=== PATIENT | male | born 1980 | race Caucasian/White ===

== ENCOUNTER 2018-10-27 07:49 | Emergency (ER) | payer OTHER ==
[2018-10-27 07:56] VITALS: BP 142/89
[2018-10-27] MEDS ORDERED: DEXAMETHASONE 10 MG/ML VIAL PO STA (08:16)
[2018-10-27] MEDS ORDERED: CHERRY SYRUP 10 ML UDC PO ONE (08:16)
--- NOTE | 2018-10-27 08:20 | ED Physician Documentation ---
PD HPI LOWER EXT INJURY - Stated complaint Stated Complaint: LT LEG PX - Chief complaint Chief Complaint: Trauma Ext - History obtained from History obtained from: Patient - History of Present Illness PD HPI LOW EXT INJURY LOCATION: Left, Upper leg Type of injury: Other (excessive use) Where injury occurred: Work Timing - onset: Today Timing - duration: Hours Timing - details: Abrupt onset, Still present Improved by: Rest, Immobilization Worsened by: Moving, Palpating Associated symptoms: No: Weakness, Numbness, Tingling Contributing factors: No: Anticoagulated Similar symptoms before: Has not had sx before Recently seen: Not recently seen - Additional information Additional information: 38-year-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 He is developed some pain in his upper thighs bilaterally and and in his groin from recent training and today he was doing some lunges heard a large snap and has pain specifically in the left groin with any type of ambulation. Review of Systems Constitutional: denies: Fever Eyes: denies: Decreased vision Ears: denies: Ear pain Nose: denies: Congestion Throat: denies: Sore throat Respiratory: denies: Cough GI: denies: Vomiting : denies: Dysuria Skin: denies: Rash Musculoskeletal: reports: Extremity pain, Pain with weight bearing. denies: Neck pain, Back pain, Joint swelling Neurologic: denies: Generalized weakness, Focal weakness, Numbness PD PAST MEDICAL HISTORY - Present Medications Home Medications: Ambulatory Orders Medication Instructions Recorded Confirmed Cyclobenzaprine [Flexeril] 10 mg PO TID PRN #20 tablet 10/27/18 Hydrocodone/Acetaminophen 1 - 2 each PO Q6H PRN #14 tablet 10/27/18 [Hydrocodon-Acetaminophen 5-325] - Allergies Allergies/Adverse Reactions: Allergies Allergy/AdvReac Type Severity Reaction Status Date / Time No Known Drug Allergies Allergy Verified 10/27/18 07:56 PD ED PE NORMAL - Vitals Vital signs reviewed: Yes (tachy and hypertensive ) - General General: Alert and oriented X 3, No acute distress, Well developed/nourished - HEENT HEENT: Atraumatic, PERRL, EOMI - Respiratory Respiratory: No respiratory distress - Derm Derm: Normal color, Warm and dry, No rash - Extremities Extremities: No deformity, No edema, Other (There is tenderness to the anterior thigh and the ingunial fold. There is normal ROM of the hip and distal n/v is intact. ) - Neuro Neuro: Alert and oriented X 3, apns 2-12 intact, No motor deficit, No sensory deficit, Normal speech Eye Opening: Spontaneous Motor: Obeys Commands Verbal: Oriented GCS Score: 15 - Psych Psych: Normal mood, Normal affect Results - Vitals Vitals: Vital Signs - 24 hr 10/27/18 07:53 Temperature 36.0 C L Heart Rate 113 H Respiratory 20 Rate Blood Pressure 142/89 H O2 Saturation 97 Oxygen O2 Source Room air PD MEDICAL DECISION MAKING - ED course Complexity details: re-evaluated patient, considered differential, d/w patient ED course: 38-year-old male was pulled a muscle in his groin has significant pain and difficulty ambulating. He is administered dexamethasone and Toradol here in the emergency department and we will place him on some pain medication a muscle relaxant with reduced activity for about 10 days. Departure - Departure Disposition: 01 Home, Self Care Clinical Impression: Strain of groin Qualifiers: Encounter type: initial encounter Laterality: left Qualified Code(s): S76.212A - Strain of adductor muscle, fascia and tendon of left thigh, initial encounter Condition: Stable Instructions: ED Strain Groin Follow-Up: [facility] [Provider Group] Prescriptions: Cyclobenzaprine [Flexeril] 10 mg PO TID PRN #20 tablet PRN Reason: Spasms Hydrocodone/Acetaminophen [Hydrocodon-Acetaminophen 5-325] 1 - 2 each PO Q6H PRN #14 tablet PRN Reason: pain Forms: Activity restrictions
[2018-10-27] MEDS ORDERED: KETOROLAC 60 MG/2 ML VIAL IM STA (08:21)
== END 2018-10-27 08:41 | disposition home or self-care (01) ==
LOC: ED 07:49
DX: S76.212A Strain of adductor muscle, fascia and tendon of left thigh, initial encounter (principal); X50.9XXA Other and unspecified overexertion or strenuous movements or postures, initial encounter; Y93.A9 Activity, other involving cardiorespiratory exercise; Y99.0 Civilian activity done for income or pay
CPT/HCPCS: 96372; 99283; 99284; A9270

== ENCOUNTER 2019-10-05 20:05 | Outpatient (CLI) | payer OTHER | END 2019-10-05 20:06 | disposition critical access hospital (66) | LOC: EMS 20:05 | PROVIDERS: ATTEND Surgery | DX: S49.91XA Unspecified injury of right shoulder and upper arm, initial encounter (principal); R07.81 Pleurodynia; V19.88XA Pedal cyclist (driver) (passenger) injured in other specified transport accidents, initial encounter; Y93.55 Activity, bike riding | CPT/HCPCS: A0425; A0427 ==

== ENCOUNTER 2019-10-29 10:31 | Outpatient (CLI) | payer OTHER | END 2019-10-29 10:32 | disposition home or self-care (01) | LOC: DI 10:31 | DX: Z53.9 Procedure and treatment not carried out, unspecified reason (principal) ==

== ENCOUNTER 2019-11-19 09:12 | Outpatient (CLI) | payer OTHER ==
--- NOTE | 2019-11-19 10:53 | MRI Report ---
PROCEDURE: Shoulder RT W/O INDICATIONS: SUBLUXATION OF RT AC JOINT TECHNIQUE: Noncontrast oblique coronal T2 fast spin echo with fat saturation, oblique sagittal T1 spin echo and T2 fast spin echo with fat saturation, axial T1 spin echo and T2 fast spin echo with fat saturation t hrough the shoulder. COMPARISON: Right shoulder radiographs dated 10/05/2019 FINDINGS: Image quality: Excellent. Rotator cuff: There is moderate supraspinatus and infraspinatus tendinosis. The teres minor tendon i s intact. There is mild subscapularis tendinosis. There is no significant rotator cuff muscle atrophy . Bones and bursae: There is osseous and soft tissue edema surrounding the acromioclavicular joint wit h disruption of the acromioclavicular ligaments. The coracoclavicular ligaments appear to be torn at the midportion. Findings are compatible with the previously seen type III acromioclavicular separatio n injury. There is mild widening of the acromioclavicular joint space on this exam without significan t superior offset of the distal clavicle. The remaining osseous structures are intact. Small traction cystic changes are seen at the posterosuperior humeral head near the rotator cuff tendon insertions. Capsule and soft tissues: In the absence of intra-articular contrast, the labrum and glenohumeral li gaments appear intact. The long head of the biceps tendon demonstrates normal location and morpholog y. There is mild partial effacement of the normal fat in the rotator interval. The inferior glenohum eral ligament is not significantly thickened. IMPRESSION: 1. Widening of the acromioclavicular joint space with disruption of the acromioclavicular ligaments and coracoclavicular ligament is compatible with a prior type III acromioclavicular separation injury . The distal clavicle and acromion are normally aligned on the current study. There is surrounding os seous and soft tissue edema. 2. Moderate supraspinatus and infraspinatus tendinosis. Mild subscapularis tendinosis. Reviewed by: Marques Gu MD on 11/19/2019 10:52 AM PDT Approved by: Marques Gu MD on 11/19/2019 10:52 AM PDT Station ID: [id number]
== END 2019-11-19 09:13 | disposition home or self-care (01) ==
LOC: DI 09:12
DX: R93.6 Abnormal findings on diagnostic imaging of limbs (principal); M75.81 Other shoulder lesions, right shoulder

== ENCOUNTER 2020-05-13 06:27 | Day surgery (SDC) | payer OTHER ==
[~2020-05-13 06:27] MED LIST: LACTATED RINGERS 1,000 ML IV ONE; SODIUM CHLORIDE 0.9% 1,000 ML IV ONE; cefTRIAXone 2 GM VIAL ONE
[2020-05-13] MEDS ORDERED: LIDOCAINE-MPF 2% 5 ML VIAL ONE (07:00)
[2020-05-13] MEDS ORDERED: PROPOFOL 200 MG/20 ML VIAL IVP ONE (07:00)
[2020-05-13] MEDS ORDERED: BUPIVACAINE 0.5% PF 30 ML VIAL ONE (07:03)
[2020-05-13] MEDS ORDERED: MIDAZOLAM 2 MG/2 ML VIAL ONE (07:08)
[2020-05-13] MEDS ORDERED: BUPIVACAINE 0.25% PF 30 ML VIAL ONE (07:26)
[2020-05-13] MEDS ORDERED: HYDROmorphone 0.5 MG/0.5 ML SYRINGE IVP PRN (07:40)
[2020-05-13] MEDS ORDERED: METOCLOPRAMIDE 10 MG/2 ML VIAL IVP PRN (07:40)
[2020-05-13] MEDS ORDERED: ATROPINE ABBOJECT 1 MG/10 ML SYRINGE IVP PRN (07:40)
[2020-05-13] MEDS ORDERED: ePHEDrine 50 MG/ML VIAL IVP PRN (07:40)
[2020-05-13] MEDS ORDERED: NALOXONE 0.4 MG/ML VIAL IVP PRN (07:40)
[2020-05-13] MEDS ORDERED: ONDANSETRON 4 MG/2 ML VIAL IVP PRN ×2 (07:40→12:17)
[2020-05-13] MEDS ORDERED: MORPHINE 2 MG/ML CARPUJECT IVP PRN (07:40)
--- NOTE | 2020-05-13 07:40 | ANESTHESIA ---
Pre-Anesthesia VS, & Labs - Diagnosis RIght AC Separation - Procedure RIght ac repair Vital Signs: Temp Pulse Resp BP Pulse Ox 37.3 C 105 H 16 148/95 H 95 05/13/20 06:43 05/13/20 06:43 05/13/20 06:43 05/13/20 06:43 05/13/20 06:43 Height: 6 ft Weight (kg): 105.69 kg Body Mass Index: 31.6 BMI Classification: Obese - NPO >8 hours Home Medications and Allergies Home Medications: Ambulatory Orders Loratadine [Claritin] 10 mg PO DAILY 05/10/20 Omeprazole 20 mg PO DAILY PRN 10/06/19 Loratadine [Claritin] 10 mg PO DAILY 05/10/20 Allergies/Adverse Reactions: Allergies Allergy/AdvReac Type Severity Reaction Status Date / Time No Known Drug Allergies Allergy Verified 05/10/20 14:21 Anes History & Medical History - Anesthetic History Anesthesia Complications: reports: No previous complications Family history of Anesthesia Complications: Denies Family history of Malignant Hyperthermia: Denies - Medical History Cardiovascular: reports: None Pulmonary: reports: Asthma Gastrointestinal: reports: GERD Urinary: reports: None Neuro: reports: None Musculoskeletal: reports: Other Endocrine/Autoimmune: reports: None Blood Disorders: reports: None Skin: reports: None Smoking Status: Current every day smoker (Also uses smokeless tobacco) - Surgical History Eyes Ears Nose Throat (EENT): reports: Tonsil/Adenoidectomy Exam General: Alert, Oriented x3, Cooperative, No acute distress Dental: WNL Mouth Opening: Greater than 4 Fingerbreadths Neck Mobility: Normal Mallampati classification: II Thyromental Distance: 4-6 cm Respiratory: Lungs clear, Normal breath sounds, No respiratory distress, No accessory muscle use Cardiovascular: Regular rate, Normal S1, Normal S2, No murmurs Cognitive Status: Within normal limits Plan Anesthesia Type: General, Interscalene Block Regional Block: Per Surgeon's request for Post Op pain control Consent for Procedure(s) Verified and Reviewed: Yes Code Status: Attempt Resuscitation ASA classification: 2-Mild systemic disease Is this case an emergency?: No
[2020-05-13] MEDS ORDERED: fentaNYL 100 MCG/2 ML VIAL ONE ×3 (07:43→11:58)
[2020-05-13] MEDS ORDERED: LACTATED RINGERS 1,000 ML IV SCH (08:00)
[2020-05-13] MEDS ORDERED: BACITRACIN 50,000 UNIT VIAL ONE ×2 (08:03→13:15)
[2020-05-13] MEDS ORDERED: DEXAMETHASONE 4 MG/ML VIAL ONE (08:11)
[2020-05-13] MEDS ORDERED: HYDROmorphone 1 MG/ML CARPUJECT ONE (09:21)
[2020-05-13] MEDS ORDERED: BACITRACIN 50,000 UNIT VIAL IM ONE (10:13)
[2020-05-13] MEDS ORDERED: BUPIVACAINE 0.25% PF 30 ML VIAL SUBQ ONE (11:04)
[2020-05-13] MEDS ORDERED: LACTATED RINGERS 1,000 ML IV ONE (11:39)
[2020-05-13] MEDS ORDERED: KETOROLAC 30 MG/ML VIAL IVP ONE (11:46)
[2020-05-13] MEDS: fentaNYL 100 MCG/2 ML VIAL IVP PRN ×2 (11:55→12:00)
[2020-05-13] MEDS ORDERED: oxyCODONE 5 MG TABLET PO PRN (12:17)
[2020-05-13] MEDS ORDERED: LABETALOL 20 MG/4 ML SYRINGE IVP ONE ×2 (12:22→12:33)
--- NOTE | 2020-05-13 12:31 | ANESTHESIA POST OP EVALUATION ---
Anesthesia Post Eval - Post Anesthesia Eval Vitals: Last Vital Signs Temp 36.7 C 05/13/20 11:37 Pulse 142 H 05/13/20 12:00 Resp 20 05/13/20 12:00 BP 131/73 H 05/13/20 12:00 Pulse Ox 93 05/13/20 12:00 CV Function Including HR & BP: positive: Stable Pain Control: positive: Satisfactory Nausea & Vomiting: positive: Negative Mental Status: positive: Baseline Respiratory Status: Airway Patent Hydration Status: Satisfactory Anesthesia Complications: positive: None
--- NOTE | 2020-05-13 13:02 | XRAY Report ---
PROCEDURE: Chest 1 View X-Ray INDICATIONS: rapid heart rate TECHNIQUE: One view of the chest was acquired. COMPARISON: 10/06/2019 FINDINGS: Surgical changes and devices: None. Lungs and pleura: There is elevation of right hemidiaphragm suggestive of right-sided pleural effusio n and right middle and lower lobe atelectasis. Left lung is clear. No pneumothorax. Mediastinum: Mediastinal contours appear normal. Heart size is normal. Bones and chest wall: No suspicious bony lesions. Overlying soft tissues appear unremarkable. IMPRESSION: Suggestion of moderate right pleural effusion with right middle and lower lobe atelectasis. No gross pneumothorax. Left lung is clear. Reviewed by: Jaspreet Kahn MD on 05/13/2020 1:00 PM PST Approved by: Jaspreet Kahn MD on 05/13/2020 1:00 PM [facility] Station ID: [id number]
--- NOTE | 2020-05-13 13:03 | OPERATIVE REPORT ---
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 Elbow and wrist range of motion. We will start supine shoulder motion at 2 weeks with physical therapy. INDICATION FOR SURGERY: 39-year-old [id number] male sustained injury to the ipsilateral shoulder and chest during the summer 2019. He had multiple right rib fractures and a right shoulder separation. Based on radiographic parameters, the shoulder separation was felt to be grade 3, and an initial period of nonoperative recovery was recommended. Over the subsequent months, his pain improved as his fractures healed, however his shoulder remains symptomatic at the AC joint. MRI obtained did not demonstrate any significant intra-articular pathology. His primary complaints were pain instability and clicking at the AC joint, that was limiting his ability to perform activities that he enjoyed. Risks benefits and alternatives to surgical reconstruction of the joint were discussed to include continued nonoperative management. After that after our discussion the patient elected to proceed with open coracoclavicular ligament reconstruction with allograft. Risks of the surgery were discussed including pain, bleeding, infection (including the risk of bacterial and viral infection from the allograft), damage to nearby structures, implant failure, implant complications, loss of reduction, stiffness, need for further surgeries, DVT, PE, stroke, heart attack and even . Questions answered and informed consent was signed. PROCEDURE IN DETAIL: The patient was met in the preoperative holding on the day of the procedure. Operative AC joint was signed. Consent was verified. He desired to proceed. The patient met with anesthesia, and a regional block was placed. The patient brought to the operating room and surrendered to anesthesia. Once general anesthesia was obtained he was placed in a modified beach chair position with bony prominences well-padded. They were then prepped and draped in the standard sterile fashion. Surgical landmarks including the contour of the clavicle, the acromion, the coracoid process, and the expected locations of the conoid and trapezoid ligaments were marked out on the skin using surgical marker. The planned incision was marked out overlying the coracoid process proceeding superiorly to the posterior edge of the clavicle. A surgical timeout was performed, to confirm the patient procedure, identity, procedure, laterality, allergies, images, and antibiotics. All were in agreement we proceeded. An incision in line with a marked path was made sharply through the skin and subcutaneous tissues with a 10 blade. Hemostasis was obtained using electrocautery, and to assist with dissection through the fat to the level of the fascia. A combination of Metzenbaum scissors and Bovie electrocautery was used to develop full-thickness skin flaps newly and laterally to assist with exposure. Once the superficial flaps had been elevated, the contour of the underlying clavicle was palpated, and the planned plane of incision overlying the midline of the clavicle was visualized. The fascial/periosteal layer was incised to bone using Bovie electrocautery, and then carefully elevated subperiosteally anteriorly and posteriorly using Bovie electrocautery and a pelaze elevator, creating full-thickness periosteal/fascial flaps of both the deltoid and the trapezius. These were tagged for identification later. We continued our dissection circumferentially around the clavicle, skeletonizing the distal 4-1/2 cm of the clavicle. While this was occurring, the allograft was thawed prepped on the back table. The ends were whipstitched using 2-0 Fiberloop and the graft was sized. It was found to pass snugly through a 5.5 mm tunnel, but would not pass through a 5 mm tunnel. It was placed under tension to eliminate creep. After the graft was prepped and once the clavicle had been adequately exposed, we turned our attention to identifying the coracoid process inferiorly. Palpation was used to confirm the location of the coracoid process through the previously elevated clavicular periosteal sheath. The sheath was then pierced using Metzenbaum scissors and an interval was developed directly onto the superior surface of the coracoid process. This interval was widened medially and laterally, exposing the medial and lateral borders of the coracoid process. Hemostats and right angle clamps were used to gently dissect the soft tissue from the medial and lateral sides of the coracoid. Small Hohmann retractors were placed on either side of the coracoid and the planned path for the semicircular passer was visualized. An Arthrex curved suture passer was passed from medial to lateral, and a nitinol wire was passed. A looped passing suture was placed into the nitinol and then the suture passer was attempted to be retracted back around the coracoid process. The nitinol loop broke in the process, so new nitinol loop was obtained and the procedure was repeated, with successful passage of the loop passing suture around the coracoid. With a passing suture in place, we now turned our attention to locating the tunnels. I measured 45 mm from the lateral border of the clavicle and marked the location on the posterior half of the clavicle, for the planned tunnel for the conoid ligament reconstruction. I then measured 20 mm lateral to this location (approximately 25 mm from the lateral border of the clavicle). A Gomez was placed on the undersurface of the clavicle, and then the guide pins were passed from superior to inferior at the planned tenodesis sites. The 5.5 mm reamer was placed over the posterior most guidewire to ensure that there would not be a cortical blowout. We then reamed on power over the guidewires, and removed the reamers by hand once through both cortices. The holes were tapped using a 5.5 mm swivel lock tap. The wound was then copiously irrigated the nitinol was then used to feed the passing suture up through the conoid hole, and the graft and a fiber tape suture were passed from superior to inferior through the conoid hole, and around the coracoid process from medial to lateral. The nitinol wire was then used in the lateral trapezoid hole, and the fiber tape and graft sutures were passed from inferior to superior through the lateral trapezoid hole. The graft and fiber tape were cycled and centered, ensuring fiber tape was present at each hole. The graft was set asymmetrically, allowing approximately 2 cm of excess out of the lateral hole, with the remainder coming out of the medial hole. The lateral fiber tape and graft were secured using a peek Bio-Tenodesis screw, with good effect. We then pulled on the free limb of the suture tape, and graft while elevating the scapulohumeral complex and depressing the distal clavicle using a pelaez elevator. C arm fluoroscopy was used to confirm appropriate reduction of the AC joint. Satisfied with the reduction, tension was maintained on the graft and tape, and a 5.5 mm Bio-Tenodesis screw was placed, securing the graft. The arm was gently supported in the lap, all retractors were removed, and final C-arm images were taken, demonstrating appropriate reduction of the AC joint and CC interval. The wound was then irrigated. The longer medial limb of the graft and the fiber tape were taken laterally and tacked to the lateral portion of the acromioclavicular joint capsule using #2 FiberWire. The excess tape and graft were then cut. The short segment of graft from the lateral tenodesis site was taken medially running antiparallel to the medial limb of the graft. These were secured side to side to include the fiber tape using several interrupted #2 FiberWire's in [id number] fashion. The wound was then again copiously irrigated, and we began our closure. The tagged deltoid and trapezial periosteal myofascial layer was reapproximated using a combination of modified Anuj-Rogelio and [id number] sutures with 0 Vicryl. Following closure of this layer, the graft and clavicle were completely covered. The wound was then again irrigated and interrupted 0 Vicryl sutures were used to close the deep dermal layer. Subcutaneous tissues were closed using interrupted 2-0 Vicryl, followed by a running 3-0 Monocryl in subcuticular fashion. The incision was sealed with Dermabond, and after the glue had dried Steri-Strips were placed to reinforce the incision. 20 mL of quarter percent Marcaine plain was injected into the periincisional soft tissues for additional postoperative pain control. A sterile dressing consisting of 4 x 4 gauze and Tegaderm was placed, and subsequently reinforced with Medipore tape. The drapes were taken down, the arm was placed in a sling. Anesthesia was reversed, he was extubated, awakened and transferred to the recovery room in stable condition.
--- NOTE | 2020-05-13 13:10 | XRAY Report ---
PROCEDURE: OR C-Arm Procedure INDICATIONS: SHOULDER CORACOCLAVICULAR LIGAMENT RECONSTRUCTION TECHNIQUE: 5 intraoperative fluoroscopic images of right shoulder were obtained. COMPARISON: None. FINDINGS: Intraoperative fluoroscopic images of right shoulder shows surgical instrument placed near distal rig ht clavicular shaft and right acromioclavicular joint. Alignment of shoulder is anatomic. Total fluoroscopy time is 0.1 minute. IMPRESSION: Fluoroscopy guidance was provided intraoperatively for right shoulder surgery. Reviewed by: Jaspreet Kahn MD on 05/13/2020 1:09 PM [facility] [[email or web address]] Approved by: Jaspreet Kahn MD on 05/13/2020 1:09 PM [facility] [[email or web address]] Station ID: [id number]
[2020-05-13] MEDS ORDERED: oxyCODONE 5 MG TABLET ONE (13:32)
[2020-05-13 13:33] VITALS: BP 135/79
== END 2020-05-13 06:28 | disposition home or self-care (01) ==
LOC: SDS 06:27
PROVIDERS: ATTEND Orthopaedic Surgery
DX: S43.101A Unspecified dislocation of right acromioclavicular joint, initial encounter (principal); V18.0XXA Pedal cycle driver injured in noncollision transport accident in nontraffic accident, initial encounter; Y93.55 Activity, bike riding; J45.909 Unspecified asthma, uncomplicated; K21.9 Gastro-esophageal reflux disease without esophagitis; F17.290 Nicotine dependence, other tobacco product, uncomplicated; E66.9 Obesity, unspecified; Z68.31 Body mass index [BMI] 31.0-31.9, adult
CPT/HCPCS: 23552; 71045; 93005; A9270; C1713; C1762; J1170; J7120

== ENCOUNTER 2021-07-10 09:55 | Outpatient (CLI) | payer OTHER ==
--- NOTE | 2021-07-10 18:13 | SLEEP CARE CONSULTATION ---
Information from patient questionnaire entered by Cindy Langford. I have reviewed and concur with the information entered by Cindy Langford. This document represents the service I personally performed and the decisions made by me, Randy Harris MD, [facility]. History of Present Illness Service Date and Time: 07/10/2021 0955 Reason for Visit: New patient (INITAL, ONSET 03/2001, NO PRIORS) Chief Complaint: reports: Unrefreshed sleep, Snoring, Fatigue, Frequent awakenings at night Date of Onset: SEVERAL YEARS PER PT Usual bedtime: 10PM Time it takes to fall asleep: "DEPENDS ON THE DAY" PER PT Snores at night: Yes Observed to quit breathing while asleep: No (NOT SURE PER PT ) Sleeps alone due to snoring: No Number of times waking at night: 2 OR MORE Reasons for waking at night: reports: Other (UNKNOWN REASON PER PT ) Toss, Turn, or Twitch while sleeping: Yes Recalls having dreams: Yes Usually gets out of bed at: 515 TO 530 AM Feels refreshed in the morning: No Morning headache: No Sleepy or fatigued during the day: Yes Ever fallen asleep while driving: No Takes day naps: Yes (SOMETIMES PER PT ) Dreams during day naps: Yes (YES, SOMETIMES PER PT ) Prior sleep studies: No Additional HPI information: I had the pleasure of seeing Mr. Watson today regarding the possibility of him having a sleep disorder. As you know, he is a 41-year-old gentleman who complains of loud snore, unrefreshed sleep, persistent fatigue, and excessive daytime sleepiness. The patient tells me that he normally goes to bed around 10 pm, and it takes him variable amount of time to fall asleep. He has been told that he snores loudly and irregularly at night. He has never been observed to stop breathing in his sleep. His can still sleep in the same bed but requires a fan to drain out his snore. He can recall waking up on the average of 2 times during the night. Most of the time he wakes up because of unknown reason. He has awakened occasionally because of his own snoring, but not chok ing, or having to gasp for air. There is a lot of tossing and turning in his sleep. He has somniloquy (sleep talking) but not somnambulism (sleep walking). Generally, he can recall having dreams. In the morning he usually gets up out of the bed around 5:30 a.m. not feeling refreshed nor rested. He usually does not have a morning headache. During the day he complains of feeling sleepy and fatigued. His score on [place] Sleepiness Scale is 12 out of 24. He never has fallen asleep while driving nor has had any accident due to sleepiness. He usually does not take naps during the day. He denies having impaired concentration during the day. He complains of restless leg syndrome. 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 Patient is and lives in [place]. Have you smoked in the past 12 months: Yes Cigarettes per day (20/pack): 10 Years of smokin Smoking Pack Years: 10.0 Alcohol use: No Caffeine use: Yes Caffeine amount and frequency: 2-3 DAILY Family History Family history of sleep disordered breathing: Yes Family Hx Sleep Apnea: Grandparent: Snoring Allergies and Home Medications Known drug allergies: No Drug allergies reviewed: Yes Home medication list reviewed: Yes Allergy and home medication list: Allergies No Known Drug Allergies Allergy (Verified 05/10/20 14:21) Review of Systems Cardiovascular: denies: high blood pressure, palpitations, chest pain, irregular heart rate or pulse, leg or foot swelling, have to sleep sitting up, other Respiratory: reports: shortness of breath, wheeze Gastrointestinal: reports: heartburn Urinary: denies: incontinence, frequency, urgency, impotence, other Neurological: denies: headaches, seizure, head trauma, disorientation, speech dysfunction, gait or balance problems, fainting or unconsciousness, other Ear/Nose/Throat: reports: nasal congestion Endocrine: reports: sluggishness Musculoskeletal: reports: joint pain, back pain Immunologic: reports: sneezing, other (RUNNY NOSE) Physical Exam Vital signs obtained and entered by: Mary RIDDLE MA Heart Rate: 100 O2 Saturation: 97 Height: 6 ft Weight: 230 lb 1.011 oz Body Mass Index: 31.1 BMI Classification: Obese Impression and Plan IMPRESSION: 1. Obstructive Sleep Apnea-Hypopnea Syndrome, as suggested by history of loud and irregular snoring, unrefreshed sleep, and daytime hypersomnolence. Narrow oropharynx and obesity are common predisposing factors for obstructive sleep apnea-hypopnea syndrome. I recommend proceeding to polysomnography to confirm the diagnosis and to assess severity. If he has significant sleep disordered breathing, a manual CPAP titration study will also be performed to find the optimal treatment pressure. I informed the patient of what the sleep studies involve and after some discussion, he agreed to proceed. Plan: 1. Schedule polysomnography + manual CPAP titration study and return in 1 to 2 weeks after the study to discuss result and initiate therapy. 2. Avoid long distance driving or when feeling sleepy. 3. Avoid alcohol, sedative and muscle relaxant around bedtime. 4. Attempt to lose weight. Follow up with Sleep Care in: 1-2 months Visit Type: In Office Time Spent with Patient (minutes): 15 Provider Statement: I spent 100% of the Face to Face Visit with the patient with greater than 50% spent counseling the patient and coordination of care.
== END 2021-07-10 09:56 | disposition home or self-care (01) ==
LOC: SC 09:55
PROVIDERS: ATTEND Internal Medicine Pulmonary Disease
DX: R06.83 Snoring (principal); G47.8 Other sleep disorders; G47.10 Hypersomnia, unspecified; F17.210 Nicotine dependence, cigarettes, uncomplicated; E66.9 Obesity, unspecified; Z68.31 Body mass index [BMI] 31.0-31.9, adult
CPT/HCPCS: 99202; 99212

== ENCOUNTER 2021-08-10 20:30 | Outpatient (CLI) | payer OTHER | END 2021-08-10 20:31 | disposition home or self-care (01) | LOC: SC 20:30 | PROVIDERS: ATTEND Internal Medicine Pulmonary Disease | DX: G47.33 Obstructive sleep apnea (adult) (pediatric) (principal); G47.61 Periodic limb movement disorder | CPT/HCPCS: 95810 ==

== ENCOUNTER 2021-08-28 14:13 | Outpatient (CLI) | payer OTHER ==
[2021-08-28 14:48] VITALS: BP 151/105
--- NOTE | 2021-08-28 14:48 | SLEEP CARE CONSULTATION ---
Information from patient questionnaire entered by Vipul Ramos MA. I have reviewed and concur with the information entered by Vipul Ramos MA. This document represents the service I personally performed and the decisions made by , Randy Harris MD, [facility]. History of Present Illness Service Date and Time: 08/28/2021 1413 Initial [place] Sleepiness Scale score: 13 (07/10/21) Current [place] Sleepiness Scale score: 10 (08/28/2021) Additional HPI information: Mr. Watson returned for follow up of the sleep study he had on 08/10/21. The polysomnography showed that the patient had normal sleep efficiency. The sleep architecture was normal as well. Respiratory monitoring showed mild obstructive sleep apnea-hypopnea (AHI = 7.3) associated with oxyhemoglobin desaturation and mild hypoxia (denise oxygen saturation of 82%). The respiratory events occurred almost exclusively during REM sleep (supine AHI = 10.9; non-supine = 2.36). Snore was moderate in intensity. There was moderate periodic leg movement of sleep not associated with sleep fragmentation. Cardiac rhythm was normal sinus rhythm without significant arrhythmia. No abnormal behavior (parasomnia) observed during the night. The patient was informed of these findings. I explained to him the pathophysiology behind obstructive sleep apnea. We then spent quite a bit of time discussing different treatment options. For mild obstructive sleep apnea, surgery and oral appliance are alternatives to nasal CPAP therapy but in moderate or severe cases, nasal CPAP is the most effective and reliable treatment. Weight loss in an obese individual is strongly recommended. After some discussion, he opted to go with the nasal CPAP therapy. I explained to him how CPAP machine works and what to expect when using the machine. He is encouraged to use CPAP every night especially in the first 2 to 3 nights in order to get used to it. He should call his CPAP supplier or me to discuss any mechanical problem that may occur. If he snores or feels like he is not getting enough air from the machine, he should notify me and I will increase the pressure. Sleep Study - Results Type of Sleep Study: Polysomnography (F/U POLY, 08/10/2021 [facility], [facility]) Prior sleep studies: No Allergies and Home Medications Drug allergies reviewed: Yes Home medication list reviewed: Yes Allergy and home medication list: Allergies No Known Drug Allergies Allergy (Verified 05/10/20 14:21) Review of Systems Review of systems same as previous: Yes Physical Exam Vital signs obtained and entered by: JOHNSON CONTRERAS Blood Pressure: 151/105 (RESP 24, PULSE 92, LEFT) Heart Rate: 61 O2 Saturation: 97 (CLOTH MASK) Height: 6 ft Weight: 235 lb (CLOTHES) Weight change since last visit: DIET, EXCER, WATCH WHAT HE EATS, Body Mass Index: 31.8 BMI Classification: Obese Neck circumference: 16 (INCHES) Impression and Plan IMPRESSION: 1. Obstructive Sleep Apnea-Hypopnea Syndrome, mild, and positional. Possibly, this is the cause of the patients symptoms of unrefreshed sleep, and excessive daytime sleepiness. As mentioned above, the patient will be started on an autoCPAP set between 5 and 15 cmH2O. Depending on his response and compliance he may be brought back for an overnight CPAP titration study. PLAN: 1. Prescription made for an autoCPAP, heated humidifier, and related supplies. 2. Try to lose weight. 3. Avoid sleeping supine if not using the CPAP. 4. Return for follow up after one month of using the CPAP. Prescriptions: Auto CPAP Follow up with Sleep Care in: 1-2 months Visit Type: In Office Time Spent with Patient (minutes): 20 Provider Statement: I spent 100% of the Face to Face Visit with the patient with greater than 50% spent counseling the patient and coordination of care.
== END 2021-08-28 14:14 | disposition home or self-care (01) ==
LOC: SC 14:13
PROVIDERS: ATTEND Internal Medicine Pulmonary Disease
DX: G47.33 Obstructive sleep apnea (adult) (pediatric) (principal); E66.9 Obesity, unspecified; Z68.31 Body mass index [BMI] 31.0-31.9, adult
CPT/HCPCS: 99212

== ENCOUNTER 2022-04-05 07:11 | Emergency (ER) | payer OTHER ==
[2022-04-05] MEDS ORDERED: SODIUM CHLORIDE INHALATION 3 ML NEB INH STA (08:02)
[2022-04-05] MEDS ORDERED: RACEPINEPHRINE 2.25% NEB INH STA (08:02)
--- NOTE | 2022-04-05 08:08 | ED Physician Documentation ---
PD HPI HEENT - Stated complaint Stated Complaint: SWOLLEN UVULA - Chief complaint Chief Complaint: Heent - History obtained from History obtained from: Patient - Additional information Additional information: The patient comes to the emergency department chief complaint of upper respiratory symptoms for the last several days and uvular swelling that started last night. He states that at first, he just had a scratchy throat, but this progressed to more of a pain sensation. He was seen at the urgent care yesterday, where he was started on a methylprednisolone taper and also given a prescription for antibiotics. He was told to start the antibiotics if the taper did not help him to start feeling better by today. The patient states that he has had a little bit of a cough but no runny nose. He thinks the cough is more just from the irritation in his throat. No fevers or chills. He states that overnight, he woke up several times feeling like he needed to swallow, but never could feel quite like what ever was in his throat was going down. He states that when he looked in the mirror this morning, he realized that his uvula was swollen. He does not feel that any other structures in his mouth or throat are swollen, however. He denies any difficulty breathing. He is able to handle his secretions and swallow other things fine. The patient states that he has not noticed any swelling in his face. This is never happened to him before. No itchy rash. He states he was told at the clinic that his rapid strep was negative. He was not tested for anything else. 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 Review of Systems Constitutional: reports: Reviewed and negative Eyes: reports: Reviewed and negative Ears: reports: Reviewed and negative Nose: reports: Reviewed and negative Throat: reports: Sore throat Cardiac: reports: Reviewed and negative Respiratory: reports: Reviewed and negative GI: reports: Reviewed and negative : reports: Reviewed and negative Skin: reports: Reviewed and negative Musculoskeletal: reports: Reviewed and negative Neurologic: reports: Reviewed and negative Psychiatric: reports: Reviewed and negative Endocrine: reports: Reviewed and negative Immunocompromised: reports: Reviewed and negative PD PAST MEDICAL HISTORY - Past Medical History Cardiovascular: None Respiratory: Asthma Neuro: None Endocrine/Autoimmune: None GI: GERD : None HEENT: None Psych: None Musculoskeletal: Other Derm: None - Past Surgical History Past Surgical History: Yes HEENT: Tonsil/Adenoidectomy - Present Medications Home Medications: Ambulatory Orders Medication Instructions Recorded Confirmed Acetaminophen [Tylenol] 650 mg PO Q4HR PRN tablet 10/06/19 04/05/22 Albuterol Sulfate [Proair Hfa 1 - 2 puffs INH Q4HR PRN #1 gm 10/06/19 04/05/22 Inhaler] Omeprazole 20 mg PO DAILY PRN 10/06/19 04/05/22 Loratadine [Claritin] 10 mg PO DAILY 05/10/20 04/05/22 Amoxicillin 1 tab PO BID 04/05/22 04/05/22 Montelukast [Singulair] 10 mg PO DAILY 04/05/22 04/05/22 Sildenafil Citrate [Sildenafil] 20 mg PO ONCE PRN 04/05/22 04/05/22 methylPREDNISolone [Medrol Dose 1 tab PO DAILY 04/05/22 04/05/22 Pack] - Allergies Allergies/Adverse Reactions: Allergies Allergy/AdvReac Type Severity Reaction Status Date / Time No Known Drug Allergies Allergy Verified 05/10/20 14:21 - Social History Does the pt smoke?: Yes Smoking Status: Current every day smoker (Also uses smokeless tobacco) Does the pt drink ETOH?: Yes Does the pt have substance abuse?: No - Immunizations Immunizations are current?: Yes - POLST Patient has POLST: No PD ED PE NORMAL - Vitals Vital signs reviewed: Yes - General General: Alert and oriented X 3, No acute distress, Well developed/nourished - HEENT HEENT: Atraumatic, PERRL, EOMI, Moist mucous membranes, Other (Mild uvular edema with small white patches noted on the tonsils and the posterior palate. No tons illar enlargement. No edema of other oropharyngeal structures.) - Neck Neck: Supple, no meningeal sign, No adenopathy - Cardiac Cardiac: RRR, No murmur, Strong equal pulses - Respiratory Respiratory: No respiratory distress, Clear bilaterally - Derm Derm: Warm and dry - Extremities Extremities: No deformity - Neuro Neuro: Alert and oriented X 3 - Psych Psych: Normal mood, Normal affect Results - Vitals Vitals: Vital Signs - 24 hr 04/05/22 04/05/22 09:44 09:54 Heart Rate 73 78 Respiratory 20 18 Rate Blood Pressure 127/79 127/79 O2 Saturation 100 100 Oxygen O2 Source Room air - Labs Labs: Laboratory Tests 04/05/22 04/05/22 09:08 09:09 Nasal Adenovirus (PCR) NOT DETECTED Nasal B. parapertussis DNA (PCR) NOT DETECTED Nasal Coronavir 229E PCR NOT DETECTED Nasal Coronavir HKU1 PCR NOT DETECTED Nasal Coronavir NL63 PCR NOT DETECTED Nasal Coronavir OC43 PCR NOT DETECTED Nasal Enterovir/Rhinovir PCR NOT DETECTED Nasal Influenza B PCR NOT DETECTED Nasal Influenza A PCR NOT DETECTED Nasal Parainfluen 1 PCR NOT DETECTED Nasal Parainfluen 2 PCR NOT DETECTED Nasal Parainfluen 3 PCR NOT DETECTED Nasal Parainfluen 4 PCR NOT DETECTED Nasal RSV (PCR) NOT DETECTED Nasal B.pertussis DNA PCR NOT DETECTED Nasal C.pneumoniae (PCR) NOT DETECTED Jaden Human Metapneumo PCR NOT DETECTED Nasal M.pneumoniae (PCR) NOT DETECTED Nasal SARS-CoV-2 (PCR) NOT DETECTED Group A Strep Rapid Negative PD Medical Decision Making - ED course Complexity details: reviewed results, re-evaluated patient, considered differential, d/w patient ED course: The patient overall was fairly well-appearing, and I discussed with him that uvular hydrops is not uncommon when there is some inflammation in the throat. He is already on steroids and his throat does have the appearance of an exudative pharyngitis/tonsillitis. As such, I feel that he ought to start the antibiotics. We have repeated a strep test here, as well as a respiratory PCR panel. The patient has been treated with doses of Decadron and Nebulized saline, as racemic epinephrine is no longer available. I discussed with him that while uncomfortable, generally in this condition resolves on its own without major complications. The patient should continue the steroid taper. He will follow-up with [facility] as needed and we have discussed the usual indications for return to the emergency department. Departure - Departure Disposition: 01 Home, Self Care Clinical Impression: Uvular swelling, Exudative pharyngitis, Tonsillitis Condition: Stable Instructions: ED Pharyngitis Viral Report Pending, ED Strep Pharyngitis Poss Comments: It is not uncommon to have swelling of the uvula from the inflammation caused by a throat infection, whether viral or bacterial. Uvula is moderately swollen, but not to the point where it should cause any issue with your airway. There is no specific remedy for the swelling of the uvula, and this will resolve on its own as your body gets rid of the infection. You may drink ice water to help with some of the swelling. You should continue to take the steroids and it is probably advisable at this point to take the antibiotics to, as you do have findings consistent with a bacterial infection in your throat, Although your rapid strep is still coming back as negative. As we discussed, sometimes other strep groups can cause a very similar infection, but do not trigger the rapid test to be positive. The culture however will come back positive if one of these is the culprit. There may still be a component of this that is viral also, and this will have to be gotten rid of by your body's immune system. Your viral panel is pending at this time and will be back within the next few hours. We will call you if there are any significant positive results, but you may also follow-up your results on her website at [email or web address]. You may find your account by clicking on the "my [facility]" tab and signing up for the patient portal. You may use ibuprofen and/or Tylenol if needed for the discomfort. It is best that you stay home from work today if you are still feeling terrible. If you are beginning to feel little better tomorrow, and have been able to take your antibiotics, then you may continue your plans to go to [place] if you wish. Forms: Activity restrictions Discharge Date/Time: 04/05/22 09:54
[2022-04-05 09:31] LABS: RAPID STREP SCREEN Negative (Negative)
[2022-04-05 09:44] VITALS: BP 127/79
[2022-04-05 10:12] LABS: B. PARAPERTUSSIS- RESP PCR PAN NOT DETECTED; B. PERTUSSIS- RESP PCR PANEL NOT DETECTED; C. PNEUMONIAE- RESP PCR PANEL NOT DETECTED; CORONAVIRUS 229E-RESP PCR NOT DETECTED; CORONAVIRUS HKU1-RESP PCR NOT DETECTED; CORONAVIRUS NL63-RESP PCR NOT DETECTED; CORONAVIRUS OC43-RESP PCR NOT DETECTED; HUMAN METAPNEUMOVIRUS NOT DETECTED; INFLUENZA A- RESP PCR PANEL NOT DETECTED; INFLUENZA B - RESP PCR PANEL NOT DETECTED; M. PNEUMONIAE- RESP PCR PANEL NOT DETECTED; PARAINFLUENZA VIRUS 1 NOT DETECTED; PARAINFLUENZA VIRUS 2 NOT DETECTED; PARAINFLUENZA VIRUS 3 NOT DETECTED; PARAINFLUENZA VIRUS 4 NOT DETECTED; RHINOVIRUS/ENTEROVIRUS NOT DETECTED; RSV- RESP PCR PANEL NOT DETECTED; SARS-CoV-2 -RESP PCR PANEL NOT DETECTED
== END 2022-04-05 09:54 | disposition home or self-care (01) ==
LOC: ED 07:11
DX: J02.9 Acute pharyngitis, unspecified (principal); F17.200 Nicotine dependence, unspecified, uncomplicated; Z20.822 Contact with and (suspected) exposure to COVID-19
CPT/HCPCS: 87070; 87430; 87633; 99283

== ENCOUNTER 2022-08-29 04:13 | Emergency (ER) | payer OTHER ==
[2022-08-29 05:17] LABS: BASOPHILS # (AUTO) 0.1 10^3/uL (0.0-0.1); BASOPHILS % (AUTO) 0.5 %; EOSINOPHILS # (AUTO) 0.2 10^3/uL (0.0-0.7); EOSINOPHILS % (AUTO) 2.1 %; HCT - HEMATOCRIT 42.5 % (42.0-52.0); HGB - HEMOGLOBIN 15.5 g/dL (14.0-18.0); LYMPHOCYTES # (AUTO) 2.6 10^3/uL (1.5-3.5); LYMPHOCYTES % (AUTO) 23.6 %; MEAN CORPUSCULAR HEMOGLOBIN 35.9 pg (27.0-31.0); MEAN CORPUSCULAR HGB CONC 36.5 g/dL (32.0-36.0); MEAN CORPUSCULAR VOLUME 98.4 fL (80.0-94.0); MEAN PLATELET VOLUME 9.4 fL (7.4-11.4); MONOCYTES # (AUTO) 0.8 10^3/uL (0.0-1.0); MONOCYTES % (AUTO) 7.3 %; NEUTROPHILS # (AUTO) 7.2 10^3/uL (1.5-6.6); NEUTROPHILS % (AUTO) 66.2 %; PLT - PLATELET COUNT 153 10^3/uL (130-450); RED BLOOD COUNT 4.32 10^6/uL (4.70-6.10); RED CELL DISTRIBUTION WIDTH 15.3 % (12.0-15.0); WHITE BLOOD COUNT 10.9 x10^3/uL (4.8-10.8)
--- NOTE | 2022-08-29 05:22 | ED Physician Documentation ---
PD HPI ABD PAIN - Stated complaint Stated Complaint: ABD PX - Chief complaint Chief Complaint: Abd Pain - History obtained from History obtained from: Patient - Additional information Additional information: HPI from patient. Patient complains of generalized abdominal pain, more pronounced across upper abdomen, with sensation of abdominal bloating. Symptoms began 2 nights ago after eating a large meal at a [place] restaurant. The abdominal pain has been constant since onset and steadily progressive. He has been taking Pepto-Bismol without relief. He denies any blood in the stool, although he noted a dark bowel movement earlier this morning. Denies fever, denies nausea/vomiting. Denies history of similar symptoms. Pain is exacerbated with palpation of the abdomen, there is a mild degree of amelioration when he lies supine. He describes occasional alcohol intake, but denies heavy and/or regular alcohol use. Denies any recent heavy alcohol use. Review of Systems Constitutional: denies: Fever GI: reports: Abdominal Pain, Abdominal Swelling. denies: Nausea, Vomiting, Constipation, Diarrhea PD PAST MEDICAL HISTORY - Past Medical History Cardiovascular: None Respiratory: Asthma Neuro: None Endocrine/Autoimmune: None GI: GERD : None HEENT: None Psych: None Musculoskeletal: Other Derm: None - Past Surgical History Past Surgical History: Yes HEENT: Tonsil/Adenoidectomy - Present Medications Home Medications: Ambulatory Orders Medication Instructions Recorded Confirmed Acetaminophen [Tylenol] 650 mg PO Q4HR PRN tablet 10/06/19 04/05/22 Albuterol Sulfate [Proair Hfa 1 - 2 puffs INH Q4HR PRN #1 gm 10/06/19 04/05/22 Inhaler] Omeprazole 20 mg PO DAILY PRN 10/06/19 04/05/22 Loratadine [Claritin] 10 mg PO DAILY 05/10/20 04/05/22 Amoxicillin 1 tab PO BID 04/05/22 04/05/22 Montelukast [Singulair] 10 mg PO DAILY 04/05/22 04/05/22 Sildenafil Citrate [Sildenafil] 20 mg PO ONCE PRN 04/05/22 04/05/22 methylPREDNISolone [Medrol Dose 1 tab PO DAILY 04/05/22 04/05/22 Pack] oxyCODONE [Roxicodone] 5 - 10 mg PO Q6H PRN #20 tablet 08/29/22 - Allergies Allergies/Adverse Reactions: Allergies Allergy/AdvReac Type Severity Reaction Status Date / Time No Known Drug Allergies Allergy Verified 08/29/22 04:37 - Social History Does the pt smoke?: Yes Smoking Status: Current every day smoker (Also uses smokeless tobacco) Does the pt drink ETOH?: Yes Does the pt have substance abuse?: No - Immunizations Immunizations are current?: Yes - POLST Patient has POLST: No PD ED PE NORMAL - Vitals Vital signs reviewed: Yes - General General: Alert and oriented X 3, No acute distress, Well developed/nourished - Cardiac Cardiac: RRR, No murmur - Respiratory Respiratory: No respiratory distress, Clear bilaterally - Abdomen Abdomen: Soft, Non distended, Other (TTP across upper abdomen, most pronounced in epigastrium. No rebound nor guarding. ) - Back Back: No CVA TTP - Derm Derm: Normal color, Warm and dry, No rash Results - Vitals Vitals: Oxygen O2 Source Room air - Labs Labs: Laboratory Tests 08/29/22 08/29/22 08/29/22 05:12 05:12 06:17 WBC 10.9 H RBC 4.32 L Hgb 15.5 Hct 42.5 MCV 98.4 H MCH 35.9 H MCHC 36.5 H RDW 15.3 H Plt Count 153 MPV 9.4 Neut # (Auto) 7.2 H Lymph # (Auto) 2.6 Reagan # (Auto) 0.8 Eos # (Auto) 0.2 Baso # (Auto) 0.1 Absolute Nucleated RBC 0.00 Nucleated RBC % 0.0 Sodium 133 L Potassium 3.4 L Chloride 99 L Carbon Dioxide 22 Anion Gap 12.0 BUN 13 Creatinine 0.9 Estimated GFR (MDRD) 92 Glucose 116 H Calcium 9.0 Total Bilirubin 0.7 AST 48 H ALT 22 Alkaline Phosphatase 77 Total Protein 7.2 Albumin 4.2 Globulin 3.0 Albumin/Globulin Ratio 1.4 Lipase 72 H Urine Color YELLOW Urine Clarity CLEAR Urine pH 5.0 Ur Specific [place] >=1.030 H Urine Protein TRACE Urine Glucose (UA) NEGATIVE Urine Ketones TRACE Urine Occult Blood NEGATIVE Urine Nitrite NEGATIVE Urine Bilirubin NEGATIVE Urine Urobilinogen 0.2 (NORMAL) Ur Leukocyte Esterase NEGATIVE Ur Microscopic Review NOT INDICATED Urine Culture Comments NOT INDICATED - Rads (name of study) CT A/P with IV contrast Relevant Findings:: Prelim report reviewed, See rad report PD Medical Decision Making - ED course Complexity details: reviewed results, re-evaluated patient, considered differential, d/w patient ED course: There are no concerning or diagnostic findings on the blood tests. His white blood cell count is minimally elevated (10.9), with normal hemoglobin/hematocrit and platelets. In the ER abdominal panel, very mild hyponatremia (133) minimal hypokalemia (3.4). His lipase is mildly elevated at 72, but the remainder of the LFTs are normal with the exception of AST minimally elevated (48). The CT scan of the abdomen pelvis is interpreted by the radiologist as "Mild peripancreatic fat stranding tail of the pancreas correlate with serum amylase and lipase levels for possible pancreatitis. Hepatomegaly with hepatic steatosis. No radiopaque gallstones. Poor distensibility of the colon cannot exclude mild colitis clinical correlation." The results of this test were discussed with the patient. It does not sound like there are any obvious risk factors for pancreatitis with this patient, such as heavy or regular alcohol intake or prescription medications with known association with pancreatitis. Given the mild findings on CT and the very mild elevation in lipase, and also considering that excellent pain control was achieved with a single dose of Toradol and Dilaudid IV, it is safe and appropriate send the patient home at this time. Prior to discharge, he was given 10 mg oxycodone p.o. for some residual pain, and a prescription for oxycodone is electronically submitted to his pharmacy of choice.The possible diagnosis of pancreatitis is discussed with the patient, along with prognosis, return precautions were also reviewed. I advised him, of course, to avoid alcohol intake completely until he feels the symptoms have completely resolved, and even then to drink only in moderation, as this can be a causative factor regarding pancreatitis. Advised him to contact his primary care provider to arrange for follow-up, next available appointment, for reevaluation. Departure - Departure Disposition: 01 Home, Self Care Clinical Impression: Hepatic steatosis Pancreatitis Qualifiers: Chronicity: acute Pancreatitis type: unspecified pancreatitis type Acute pancreatitis complication: unspecified Qualified Code(s): K85.90 - Acute p ancreatitis without necrosis or infection, unspecified Condition: Good Instructions: ED Pancreatitis Follow-Up: [facility] [Provider Group] Prescriptions: oxyCODONE [Roxicodone] 5 - 10 mg PO Q6H PRN #20 tablet PRN Reason: Pain 5-7 Comments: There were no concerning nor specifically diagnostic results on your blood tests. As we discussed, your pancreatic enzyme (lipase) was very mildly elevated as was your white blood cell count. Neither was elevated to a concerning extent. The CT scan shows mild inflammation around the pancreas, suggestive of pancreatitis. Pancreatitis is a painful condition and the location of pain associated pancreatitis would correlate with where your pain is. Given how much pain relief you achieved with just the one dose of pain medication in the emergency department, and the mild appearance on the CT scan along with very mi nimal elevation of your pancreatic enzyme on the blood test, it is safe and appropriate to discharge you home at this time. A prescription for oxycodone (narcotic/opiate pain medication) has been electronically submitted to the [facility] pharmacy in [place]. I am prescribing a short course of narcotic pain medication for you. These are potentially dangerous and addictive medications that should be used carefully. These medications may constipate you. Take an [id number] stool softener (docusate) twice daily with plenty of water while taking these medications. If you go 24 hours without a bowel movement, take [id number] miralax, per package instructions. Do not drink or drive while taking these medications. If you received narcotic or sedating medications while in the emergency department, do not drive for 24 hours. Store this medication in a safe, secure place and out of reach of children. It is a violation of federal law to give or sell this medication to another person or to use in a manner other than prescribed. The ED will not refill narcotic prescriptions, including prescriptions lost or stolen. To dispose of unwanted medications: 1. [facility] at [address] in [place] has a medication drop box. They accept prescription medications (in pill form) Saturday through Saturday 9:00 a.m. to 5:00 p.m. 2. The [facility] accepts prescription medications (in pill form only) for disposal year round. Call for more information. 3. Contact the [facility] for the next [facility] sponsored prescription drug collection event. , [phone], or [phone]; Forms: Activity restrictions Discharge Date/Time: 08/29/22 08:05
[2022-08-29 05:32] LABS: ALBUMIN 4.2 g/dL (3.2-5.5); ALBUMIN/GLOBULIN RATIO 1.4 (1.0-2.2); BILIRUBIN,TOTAL 0.7 mg/dL (0.2-1.0); CREATININE 0.9 mg/dL (0.6-1.2); POTASSIUM 3.4 mmol/L (3.5-5.0); TOTAL PROTEIN 7.2 g/dL (6.7-8.2)
[2022-08-29] MEDS ORDERED: SODIUM CHLORIDE 0.9% 1,000 ML IV STA (05:43)
[2022-08-29] MEDS ORDERED: HYDROmorphone 1 MG/ML CARPUJECT IVP STA (05:43)
[2022-08-29] MEDS ORDERED: KETOROLAC 30 MG/ML VIAL IVP STA (05:43)
[2022-08-29] MEDS ORDERED: iohexoL-300 100 ML VIAL ONE (05:50)
[2022-08-29 06:25] LABS: BILIRUBIN,URINE NEGATIVE (NEGATIVE); GLUCOSE, URINE (UA) NEGATIVE (NEGATIVE); KETONES,URINE (UA) TRACE mg/dL (NEGATIVE); LEUKOCYTE ESTERASE, URINE NEGATIVE (NEGATIVE); NITRITE,URINE NEGATIVE (NEGATIVE); OCCULT BLOOD,URINE NEGATIVE (NEGATIVE); PROTEIN,URINE TRACE mg/dL (NEGATIVE); UROBILINOGEN,URINE 0.2 (NORMAL) E.U./dL (NORMAL)
[2022-08-29 06:26] LABS: CLARITY,URINE CLEAR (CLEAR)
[2022-08-29] MEDS ORDERED: iohexoL-300 100 ML VIAL IVP ONE (06:46)
[2022-08-29] MEDS ORDERED: oxyCODONE 5 MG TABLET PO STA (07:37)
[2022-08-29 08:08] VITALS: BP 142/85
--- NOTE | 2022-08-29 10:11 | CT Report ---
PROCEDURE: ABDOMEN/PELVIS W INDICATIONS: abd. pain CONTRAST: Omni 300 100ml TECHNIQUE: After the administration of intravenous contrast, 5 mm thick sections acquired from the diaphragms to the symphysis. 5 mm thick coronal and sagittal reformats were acquired. For radiation dose reducti on, the following was used: automated exposure control, adjustment of mA and/or kV according to ramandeep ent size. COMPARISON: None. FINDINGS: Image quality: Excellent. Lung bases and heart: Unremarkable. Liver: Mildly enlarged. Moderate hepatic steatosis. No solid mass. Gallbladder and biliary tree: No gallstones. No biliary dilation. Spleen: No splenomegaly. Pancreas: Subtle peripancreatic stranding suggesting mild pancreatitis. No pancreatic ductal dilation . Adrenals: No adrenal nodule. Kidneys and ureters: No hydronephrosis. No renal cystic lesion which requires follow up. No solid mas s. Bowel and peritoneum: No bowel distension. No pathologic free fluid. Colon may be mildly thickened a lthough the appearance could be caused by suboptimal distention. The appendix and terminal ileum are normal. No findings to suggest small bowel obstruction. Lymph nodes: No central or retroperitoneal adenopathy. Vessels: No infrarenal aortic aneurysm. PELVIS Reproductive organs: Unremarkable. Bladder: No abnormal wall thickening, accounting for underdistension. Pelvic lymph nodes: No pelvic adenopathy by size criteria. Bones: No aggressive osseous abnormality. Other: No significant ventral or inguinal hernia. Tubal ligations bilaterally. IMPRESSION: 1. Subtle peripancreatic stranding suggesting mild appendicitis. Recommend clinical correlation. 2. Hepatic steatosis. 3. Question mild colonic wall thickening. Differential diagnoses are mild colitis versus artifact fro m inadequate distention. No significant discrepancy with the preliminary interpretation. Reviewed by: Jean Claude Fall MD on 08/29/2022 10:09 AM PDT Approved by: Jean Claude Fall MD on 08/29/2022 10:09 AM PDT Station ID: [id number]
== END 2022-08-29 08:05 | disposition home or self-care (01) ==
LOC: ED 04:13
DX: K85.90 Acute pancreatitis without necrosis or infection, unspecified (principal); K76.0 Fatty (change of) liver, not elsewhere classified; F17.200 Nicotine dependence, unspecified, uncomplicated; F17.290 Nicotine dependence, other tobacco product, uncomplicated; Z79.899 Other long term (current) drug therapy
CPT/HCPCS: 36415; 74177; 80053; 81003; 83690; 85025; 96374; 96375; 99284; A9270; J1170; Q9967; 81001; 87086

== ENCOUNTER 2023-07-16 19:49 | Emergency (ER) | payer OTHER ==
--- NOTE | 2023-07-16 20:06 | ED Physician Documentation ---
PD HPI NVD - Stated complaint Stated Complaint: N/V/CHILLS - Chief complaint Chief Complaint: General - History obtained from History obtained from: Patient - Additonal information Additional information: HPI from patient. Patient works nights. At approximately 9 AM this morning, he took melatonin and had a Bacardi and coke. Did get some sleep after this, but woke at approximately 3 PM with nausea and vomiting, diaphoresis, "jittery", chills and diaphoresis, mild diarrhea. He says he has mild abdominal comfort across the upper abdomen but denies vincent pain. Patient says that he was a heavy/regular drinker but stopped 3 years ago and since then only occasional drinker. There are no exacerbating nor ameliorating factors. Review of Systems Constitutional: reports: Chills, Sweats. denies: Fever Cardiac: reports: Reviewed and negative Respiratory: reports: Reviewed and negative GI: reports: Nausea, Vomiting, Diarrhea. denies: Abdominal Pain, Constipation, Hematemesis, Bloody / black stool PD PAST MEDICAL HISTORY - Past Medical History Cardiovascular: None Respiratory: Asthma Neuro: None Endocrine/Autoimmune: None GI: GERD : None HEENT: None Psych: None Musculoskeletal: Other Derm: None - Past Surgical History Past Surgical History: Yes HEENT: Tonsil/Adenoidectomy - Present Medications Home Medications: Ambulatory Orders Medication Instructions Recorded Confirmed Acetaminophen [Tylenol] 650 mg PO Q4HR PRN tablet 10/06/19 04/05/22 Albuterol Sulfate [Proair Hfa 1 - 2 puffs INH Q4HR PRN #1 gm 10/06/19 04/05/22 Inhaler] Omeprazole 20 mg PO DAILY PRN 10/06/19 04/05/22 Loratadine [Claritin] 10 mg PO DAILY 05/10/20 04/05/22 Montelukast [Singulair] 10 mg PO DAILY 04/05/22 04/05/22 Sildenafil Citrate [Sildenafil] 20 mg PO ONCE PRN 04/05/22 04/05/22 - Allergies Allergies/Adverse Reactions: Allergies Allergy/AdvReac Type Severity Reaction Status Date / Time No Known Drug Allergies Allergy Verified 07/16/23 20:03 - Social History Does the pt smoke?: Yes Smoking Status: Current every day smoker (Also uses smokeless tobacco) Does the pt drink ETOH?: Yes Does the pt have substance abuse?: No - Immunizations Immunizations are current?: Yes - POLST Patient has POLST: No PD ED PE NORMAL - Vitals Vital signs reviewed: Yes - General General: Alert and oriented X 3, No acute distress, Well developed/nourished - HEENT HEENT: Moist mucous membranes - Neck Neck: Supple, no meningeal sign - Cardiac Cardiac: RRR, No murmur - Respiratory Respiratory: No respiratory distress, Clear bilaterally - Abdomen Abdomen: Normal bowel sounds, Soft, Non tender, Non distended - Derm Derm: Normal color, Warm and dry - Extremities Extremities: No edema Results - Vitals Vitals: Vital Signs - 24 hr 07/16/23 07/16/23 19:55 22:27 Temperature 36.4 C L Heart Rate 72 92 Respiratory 16 18 Rate Blood Pressure 125/88 H 106/59 L O2 Saturation 99 95 Oxygen O2 Source Room air - Labs Labs: Laboratory Tests 07/16/23 07/16/23 20:30 20:30 WBC 6.3 RBC 5.25 Hgb 17.1 Hct 49.0 MCV 93.3 MCH 32.6 H MCHC 34.9 RDW 12.7 Plt Count 284 MPV 9.6 Neut # (Auto) 4.1 Lymph # (Auto) 1.6 [place] # (Auto) 0.4 Eos # (Auto) 0.1 Baso # (Auto) 0.1 Absolute Nucleated RBC 0.00 Nucleated RBC % 0.0 Sodium 139 Potassium 4.5 Chloride 100 L Carbon Dioxide 29 Anion Gap 10.0 BUN 11 Creatinine 1.1 Estimated GFR (MDRD) 72 L Glucose 124 H Calcium 10.3 Total Bilirubin 0.5 AST 15 ALT 15 Alkaline Phosphatase 64 Total Protein 8.3 Albumin 5.0 Globulin 3.3 Albumin/Globulin Ratio 1.5 Lipase 19 PD Medical Decision Making - ED course Complexity details: reviewed results, re-evaluated patient, considered differential, d/w patient ED course: Normal CBC except for (noncontributory) elevated MCH. Unremarkable ER abdominal panel with normal LFTs, lipase. Etiology of his symptoms not apparent at this time. I specifically asked him about his alcohol use, explaining that his symptoms would be consistent with alcohol withdrawal; he expresses understanding of this concern but consistently denies any heavy/regular alcohol use. He is given 1 L normal saline IV, 40 mg IV Protonix, 4 mg IV Zofran. His abdominal discomfort is mild and he is nontender on exam; he is not given nor requesting any analgesics during ED stay. Results discussed with patient. Patient tells me he is comfortable going home at this time, but is requesting a 1-time dose of medication to help him sleep when he gets home. As he is driving home, I am providing him with 2 mg p.o. lorazepam and with instruction to not take this medication until he gets home. Return precautions reviewed. Departure - Departure Disposition: , Self Care Clinical Impression: Gastroenteritis Condition: Good Instructions: ED Vomiting Diarrhea Nonspecific Ad Comments: The blood tests performed tonight are normal. The cause of your symptoms is not apparent at this time, but, as we discussed, I suspect a viral gastroenteritis. The symptoms typically resolve within a few days. Follow-up with your primary care provider as scheduled. Forms: PCP List Discharge Date/Time: 07/16/23 22:28
[2023-07-16 20:33] LABS: BASOPHILS # (AUTO) 0.1 10^3/uL (0.0-0.1); BASOPHILS % (AUTO) 0.8 %; EOSINOPHILS # (AUTO) 0.1 10^3/uL (0.0-0.7); EOSINOPHILS % (AUTO) 1.4 %; HGB - HEMOGLOBIN 17.1 g/dL (14.0-18.0); LYMPHOCYTES # (AUTO) 1.6 10^3/uL (1.5-3.5); LYMPHOCYTES % (AUTO) 25.6 %; MEAN CORPUSCULAR HEMOGLOBIN 32.6 pg (27.0-31.0); MEAN CORPUSCULAR HGB CONC 34.9 g/dL (32.0-36.0); MEAN CORPUSCULAR VOLUME 93.3 fL (80.0-94.0); MEAN PLATELET VOLUME 9.6 fL (7.4-11.4); MONOCYTES # (AUTO) 0.4 10^3/uL (0.0-1.0); NEUTROPHILS # (AUTO) 4.1 10^3/uL (1.5-6.6); NEUTROPHILS % (AUTO) 65.6 %; PLT - PLATELET COUNT 284 10^3/uL (130-450); RED BLOOD COUNT 5.25 10^6/uL (4.70-6.10); RED CELL DISTRIBUTION WIDTH 12.7 % (12.0-15.0); WHITE BLOOD COUNT 6.3 x10^3/uL (4.8-10.8)
[2023-07-16] MEDS: SODIUM CHLORIDE 0.9% 1,000 ML IV STA (20:42)
[2023-07-16] MEDS: ONDANSETRON 4 MG/2 ML VIAL IVP STA (20:42)
[2023-07-16] MEDS: PANTOPRAZOLE 40 MG VIAL IVP STA (20:43)
[2023-07-16 20:50] LABS: ALBUMIN/GLOBULIN RATIO 1.5 (1.0-2.2); BILIRUBIN,TOTAL 0.5 mg/dL (0.2-1.0); CALCIUM 10.3 mg/dL (8.5-10.3); CREATININE 1.1 mg/dL (0.6-1.3); POTASSIUM 4.5 mmol/L (3.5-4.5); TOTAL PROTEIN 8.3 g/dL (6.4-8.9)
[2023-07-16] MEDS: LORazepam 0.5 MG TABLET PO STA (22:18)
[2023-07-16 22:32] VITALS: BP 106/59; O2SAT 95
== END 2023-07-16 22:28 | disposition home or self-care (01) ==
LOC: ED 19:49
DX: K52.9 Noninfective gastroenteritis and colitis, unspecified (principal); F17.210 Nicotine dependence, cigarettes, uncomplicated; F17.220 Nicotine dependence, chewing tobacco, uncomplicated; J45.909 Unspecified asthma, uncomplicated; K21.9 Gastro-esophageal reflux disease without esophagitis
CPT/HCPCS: 36415; 80053; 83690; 85025; 96361; 96374; 96375; 99283; 99284; A9270

== ENCOUNTER 2023-11-21 07:38 | Emergency (ER) | payer OTHER ==
--- NOTE | 2023-11-21 09:12 | ED Physician Documentation ---
History of Present Illness - Stated complaint Stated Complaint: BACK PX - Chief complaint Chief Complaint: Back Pain - History obtained from History obtained from: Patient - Additonal information Additional information: The patient comes to the emergency department chief complaint of left-sided back pain. He states that he has many back issues, but that he was walking down the steps today when he slipped had to jerk his torso to right himself before falling. He did not fall to the ground and actually states that he did not really feel any pain at the time of the incident. He got to work and shortly thereafter, began to notice a spasm-like feeling just to the left of his mid spine. He states that it intensified and then seem to come in waves. It got so bad that he was sweating and finally his coworkers called the ambulance. The patient states that if he just holds perfectly still, he does not really of the pain, but when he moves certain ways, it flares up. He states that it feels m uscular. He has never had a kidney stone before, but he states it does not really feel like the pain is internal in. He states it feels like when he has had back spasms previously. He denies any urinary symptoms. No loss of bowel or bladder control. No weakness in his lower extremities. No pain shooting down his leg. No other complaints at this time. PD PAST MEDICAL HISTORY - Past Medical History Cardiovascular: None Respiratory: Asthma Neuro: None Endocrine/Autoimmune: None GI: GERD : None HEENT: None Psych: None Musculoskeletal: Other Derm: None - Past Surgical History Past Surgical History: Yes HEENT: Tonsil/Adenoidectomy - Present Medications Home Medications: Ambulatory Orders Medication Instructions Recorded Confirmed Acetaminophen [Tylenol] 650 mg PO Q4HR PRN tablet 10/06/19 04/05/22 Albuterol Sulfate [Proair Hfa 1 - 2 puffs INH Q4HR PRN #1 gm 10/06/19 04/05/22 Inhaler] Omeprazole 20 mg PO DAILY PRN 10/06/19 04/05/22 Loratadine [Claritin] 10 mg PO DAILY 05/10/20 04/05/22 Montelukast [Singulair] 10 mg PO DAILY 04/05/22 04/05/22 Sildenafil Citrate [Sildenafil] 20 mg PO ONCE PRN 04/05/22 04/05/22 Cyclobenzaprine [Flexeril] 10 mg PO TID PRN #20 tablet 11/21/23 HYDROcod/ACETAM 5/325 [Hazen 5/325] 1 - 2 tablet PO Q6H PRN #14 tablet 11/21/23 predniSONE [Deltasone] 10 mg PO [id number] #42 tab 11/21/23 - Allergies Allergies/Adverse Reactions: Allergies Allergy/AdvReac Type Severity Reaction Status Date / Time No Known Drug Allergies Allergy Verified 11/21/23 07:52 - Social History Does the pt smoke?: Yes Smoking Status: Current every day smoker Does the pt drink ETOH?: Yes Does the pt have substance abuse?: No - Immunizations Immunizations are current?: Yes - POLST Patient has POLST: No PD ED PE NORMAL - Vitals Vital signs reviewed: Yes - General General: Alert and oriented X 3, No acute distress, Well developed/nourished - HEENT HEENT: Atraumatic, EOMI, Moist mucous membranes - Neck Neck: Supple, no meningeal sign, No bony TTP - Respiratory Respiratory: No respiratory distress - Abdomen Abdomen: Soft, Non tender, Non distended - Back Back: No spinal TTP, Other (Tenderness to palpation over the left paraspinal musculature around the lower T-spine level. No sciatic tenderness.) - Derm Derm: Warm and dry - Extremities Extremities: No deformity - Neuro Neuro: Alert and oriented X 3 - Psych Psych: Normal mood, Normal affect Results - Vitals Vitals: Vital Signs - 24 hr 11/21/23 07:46 Temperature 36.7 C Heart Rate 76 Respiratory 22 Rate Blood Pressure 157/102 H O2 Saturation 98 Oxygen O2 Source Room air PD Medical Decision Making - ED course Complexity details: considered differential, d/w patient ED course: The patient was treated symptomatically in the emergency department with Dilaudid, Toradol, and Decadron. He did not have any emergent findings on exam and I suspected a muscular strain. We did discuss the possibility of kidney stone, though the pain is positional and reproducible on palpation. Furrisa burch, the patient states it really does not feel as though it is anything but muscular. At this point in time, we will forego doing CT scan. I have discussed with the patient that if he continues to have issues with the pain beyond the next couple of weeks, he will need to talk to his doctor about possibly getting MRI done. Departure - Departure Disposition: 01 Home, Self Care Clinical Impression: Back strain Qualifiers: Encounter type: initial encounter Qualified Code(s): S39.012A - Strain of muscle, fascia and tendon of lower back, initial encounter Condition: Stable Instructions: ED Spasm Back No Trauma Prescriptions: predniSONE [Deltasone] 10 mg PO [id number] #42 tab Cyclobenzaprine [Flexeril] 10 mg PO TID PRN #20 tablet PRN Reason: Spasms HYDROcod/ACETAM 5/325 [Hazen 5/325] 1 - 2 tablet PO Q6H PRN #14 tablet PRN Reason: Pain Comments: Your prescriptions have been electronically transmitted to the [facility] pharmacy in [place]. Forms: Activity restrictions
[2023-11-21] MEDS: HYDROmorphone 1 MG/ML CARPUJECT IM STA (09:19)
[2023-11-21] MEDS: KETOROLAC 60 MG/2 ML VIAL IM STA (09:20)
[2023-11-21] MEDS: DEXAMETHASONE 10 MG/ML VIAL IM STA (09:20)
[2023-11-21 09:37] VITALS: BP 154/94; O2SAT 100
== END 2023-11-21 09:31 | disposition home or self-care (01) ==
LOC: EDUNIT# → ED 07:38
DX: S39.012A Strain of muscle, fascia and tendon of lower back, initial encounter (principal); X50.1XXA Overexertion from prolonged static or awkward postures, initial encounter; J45.909 Unspecified asthma, uncomplicated; F17.200 Nicotine dependence, unspecified, uncomplicated; K21.9 Gastro-esophageal reflux disease without esophagitis
CPT/HCPCS: 96372; 99283; J1170